=== PATIENT | male | born 1980 | race Caucasian/White ===

== ENCOUNTER 2017-03-24 18:41 | Emergency (ER) | payer OTHER ==
[~2017-03-24] VITALS: Ht 172.7 cm; Wt 67.0 kg
[~2017-03-24 18:41] MED LIST: CAFF200T PO; LORA-474 PO
[2017-03-24 18:43] VITALS: BP 150/97; PULSE 95; RESP 20; TEMP 98.6; O2SAT 100
[2017-03-24] MEDS ORDERED: ZOLO50TA PO (19:31)
[2017-03-24] MEDS ORDERED: CLON.5 PO (19:31)
--- NOTE | 2017-03-24 20:40 | PD ---
HPI Chief Complaint: GI Complaint Time Seen by Provider: 20:26 Travel History International Travel<30 days: No Contact w/Intl Traveler<30days: No Traveled to known affect area: No History of Present Illness HPI This patient complains of bright red rectal bleeding. Duration 6 weeks. Severity of symptoms is mild. He has no presyncopal symptoms. No melena or dark tarry stools. He describes it as bright red but the bleeding is fairly scant. No prior history of GI bleed. He use to drink alcohol heavily but that was 4 years ago. Now he drinks very rarely, last drink was 3 weeks ago. No alleviating factors. He has occasional abdominal cramps in the epigastric area and right upper quadrant but nothing sustained PFSH Past Medical History Arthritis: Yes (believes mostly to his hands) Asthma: Yes (as a child) Diminished Hearing: No Kidney Stones: Yes Social History Alcohol Use: No Tobacco Use: Yes Substance Use: No Allergies-Medications (Allergen,Severity, Reaction): Coded Allergies: No Known Allergies (Verified , 03/24/17) Reported Meds & Prescriptions Reported Meds & Active Scripts Active Reported Zoloft (Sertraline HCl) 50 Mg Tab 50 Mg PO DAILY Klonopin (Clonazepam) 0.5 Mg Tab 0.5 Mg PO BID Review of Systems General / Constitutional: No: Fever Eyes: No: Visual changes HENT: No: Headaches Cardiovascular: No: Chest Pain or Discomfort Respiratory: No: Shortness of Breath Gastrointestinal: Positive: Abdominal Pain, Hematochezia Genitourinary: No: Dysuria Musculoskeletal: No: Pain Skin: No Rash Neurologic: No: Weakness Psychiatric: No: Depression Endocrine: No: Polydipsia Hematologic/Lymphatic: No: Easy Bruising Physical Exam Narrative GENERAL: Well-nourished, well-developed patient in no apparent distress. SKIN: Focused skin assessment reveals no rash and nodules. Skin is Warm and dry. HEAD: Atraumatic. Normocephalic. EYES: Pupils equal and round. No scleral icterus. No injection or drainage. ENT: No nasal bleeding or discharge. Mucous membranes pink and moist. NECK: Trachea midline. No JVD. CARDIOVASCULAR: Regular rate and rhythm. No murmur appreciated. RESPIRATORY: No accessory muscle use. Clear to auscultation. Breath sounds equal bilaterally. GASTROINTESTINAL: Abdomen soft, non-tender, nondistended. Hepatic and splenic margins not palpable. MUSCULOSKELETAL: No obvious deformities. No clubbing. No cyanosis. No edema. NEUROLOGICAL: Awake and alert. No obvious cranial nerve deficits. Motor grossly within normal limits. Normal speech. PSYCHIATRIC: Appropriate mood and affect; insight and judgment normal. Data Data Last Documented VS Vital Signs Date Time Temp Pulse Resp B/P Pulse Ox O2 Delivery O2 Flow Rate FiO2 03/24/17 20:27 16 03/24/17 18:43 98.6 95 150/97 100 Room Air Orders Iv Access Insert/Monitor (03/24/17 20:36) Complete Blood Count With Diff (03/24/17 20:36) Prothrombin Time / Inr (Pt) (03/24/17 20:36) Act Partial Throm Time (Ptt) (03/24/17 20:36) Comprehensive Metabolic Panel (03/24/17 20:36) Labs Laboratory Tests Test 03/24/17 20:40 White Blood Count 9.0 TH/MM3 Red Blood Count 5.07 MIL/MM3 Hemoglobin 15.6 GM/DL Hematocrit 45.7 % Mean Corpuscular Volume 90.2 FL Mean Corpuscular Hemoglobin 30.8 PG Mean Corpuscular Hemoglobin 34.1 % Concent Red Cell Distribution Width 12.7 % Platelet Count 224 TH/MM3 Mean Platelet Volume 7.6 FL Neutrophils (%) (Auto) 55.6 % Lymphocytes (%) (Auto) 32.5 % Monocytes (%) (Auto) 9.1 % Eosinophils (%) (Auto) 2.1 % Basophils (%) (Auto) 0.7 % Neutrophils # (Auto) 5.0 TH/MM3 Lymphocytes # (Auto) 2.9 TH/MM3 Monocytes # (Auto) 0.8 TH/MM3 Eosinophils # (Auto) 0.2 TH/MM3 Basophils # (Auto) 0.1 TH/MM3 CBC Comment DIFF FINAL Differential Comment Prothrombin Time 10.3 SEC Prothromb Time International 0.9 RATIO Ratio Activated Partial 30.3 SEC Thromboplast Time Sodium Level 134 MEQ/L Potassium Level 3.4 MEQ/L Chloride Level 100 MEQ/L Carbon Dioxide Level 28.3 MEQ/L Anion Gap 6 MEQ/L Blood Urea Nitrogen 17 MG/DL Creatinine 1.06 MG/DL Estimat Glomerular Filtration 80 ML/MIN Rate Random Glucose 129 MG/DL Calcium Level 8.9 MG/DL Total Bilirubin 0.3 MG/DL Aspartate Amino Transf 26 U/L (AST/SGOT) Alanine Aminotransferase 19 U/L (ALT/SGPT) Alkaline Phosphatase 81 U/L Total Protein 8.0 GM/DL Albumin 4.2 GM/DL MDM Medical Decision Making Medical Screen Exam Complete: Yes Emergency Medical Condition: Yes Medical Record Reviewed: Yes Differential Diagnosis Internal hemorrhoid, AV malformation, diverticulosis Narrative Course I have reviewed the patient's electronic medical record. Patient had a hemoglobin of 16 IV placed CBC shows a healthy hemoglobin of 15.6 Metabolic profile is normal LFTs are normal Coagulation studies are normal. Recommend outpatient GI follow-up. He is stable for this. Advised to avoid alcohol and anti-inflammatories and aspirin. Diagnosis Primary Impression: Rectal bleeding Additional Instructions: The patient was advised to follow up with GI physician and return if they worsen. Avoid alcohol and anti-inflammatories Med/Other Pt SpecificInfo: Other Disposition: 01 DISCHARGE HOME Condition: Stable Saturnino Hodge MD Mar 24, 2017 20:40
[2017-03-24 20:58] LABS: BASOPHIL # 0.1 TH/MM3 (0-0.2); BASOPHIL % 0.7 % (0.0-2.0); EOSINOPHIL # 0.2 TH/MM3 (0-0.4); EOSINOPHIL % 2.1 % (0.0-4.0); HEMATOCRIT 45.7 % (39.0-51.0); HEMO FLAGS DIFF FINAL; LYMPH % 32.5 % (9.0-44.0); LYMPHOCYTE # 2.9 TH/MM3 (1.0-4.8); MEAN CELL VOLUME 90.2 FL (80.0-100.0); MEAN CORPUSCULAR HEMOGLOBIN 30.8 PG (27.0-34.0); MEAN CORPUSCULAR HGB CONC 34.1 % (32.0-36.0); MONO % 9.1 % (0.0-8.0); NEUT % 55.6 % (16.0-70.0); PLATELET COUNT 224 TH/MM3 (150-450); RED BLOOD COUNT 5.07 MIL/MM3 (4.50-5.90); RED CELL DISTRIBUTION WIDTH 12.7 % (11.6-17.2)
[2017-03-24 21:07] LABS: APTT (PATIENT) 30.3 SEC (24.3-30.1); INTERNATIONAL NORMALIZED RATIO 0.9 RATIO; PROTHROMBIN TIME - PATIENT 10.3 SEC (9.8-11.6)
[2017-03-24 21:18] LABS: ALT (GPT) 19 U/L (12-78)
[2017-03-24 21:19] LABS: ANION GAP 6 MEQ/L (5-15); AST (GOT) 26 U/L (15-37); BICARBONATE 28.3 MEQ/L (21.0-32.0); BLOOD UREA NITROGEN 17 MG/DL (7-18); CHLORIDE 100 MEQ/L (98-107); GLOMERULAR FILTRATION RATE 80 ML/MIN (>89); POTASSIUM 3.4 MEQ/L (3.5-5.1); SODIUM (NA) 134 MEQ/L (136-145)
[2017-03-24 21:21] LABS: ALKALINE PHOSPHATASE 81 U/L (45-117); TOTAL BILIRUBIN ADULT 0.3 MG/DL (0.2-1.0)
== END 2017-03-24 22:58 | disposition home or self-care (01) ==
LOC: NEPD 18:41
DX: K62.5 Hemorrhage of anus and rectum (principal); M13.88 Other specified arthritis, other site; J45.909 Unspecified asthma, uncomplicated; Z79.899 Other long term (current) drug therapy; Z72.0 Tobacco use
CPT/HCPCS: 80053; 85025; 85610; 85730; 99283